=== PATIENT | female | born 1935 | race Caucasian/White ===

== ENCOUNTER 2020-05-09 14:14 | Inpatient (IN) ==
[2020-05-14] MEDS ORDERED: Artificial Tears SOLN 15 ML BOTTLE BOTH EYES PRN (18:11)
[2020-05-14] MEDS ORDERED: Apixaban 5 MG TABLET PO SCH (21:00)
[2020-05-14] MEDS: Metoprolol XL (24 HR) Succ 50 MG TAB.ER.24H PO SCH (23:22)
[2020-05-14] MEDS: Famotidine 20 MG TABLET PO SCH (23:23)
[2020-05-14] MEDS: ALPRAZolam 1 MG TABLET PO PRN (23:23)
[2020-05-14] MEDS: Apixaban 5 MG TABLET PO SCH ×2 (23:23→23:28)
[2020-05-15 06:36] LABS: Basophils % 0.6 %; Eosinophils # 0.2 K/mcL (0.0-0.6); Eosinophils % 2.8 %; Hematocrit 29.7 % (35.3-44.9); Hemoglobin 9.3 g/dL (11.5-15.4); Immature Granulocytes % 0.6 % (0-4); Lymphocytes # 1.4 K/mcL (0.6-4.6); Lymphocytes % 21.7 %; Mean Corpuscular HGB Conc 31.3 g/dL (31.6-35.5); Mean Corpuscular Hemoglobin 30.3 pg (28.0-33.3); Mean Corpuscular Volume 96.7 fL (83.0-100.0); Mean Platelet Volume 10.5 fL (9.4-12.4); Monocytes # 0.5 K/mcL (0.0-1.3); Monocytes % 7.3 %; Neutrophils # 4.2 K/mcL (1.6-8.9); Platelet Count 262 K/mcL (140-400); Red Blood Count 3.07 M/mcL (3.82-4.97); Red Cell Distribution Width 18.1 % (11.5-14.5); White Blood Count 6.3 K/mcL (4.3-11.1)
[2020-05-15 06:52] LABS: BUN/Creatinine Ratio 19 (6-26); Blood Urea Nitrogen 13 mg/dL (8-23); Calcium 8.2 mg/dL (8.6-10.3); Carbon Dioxide 28 mEq/L (23-29); Chloride 106 mEq/L (98-107); Glucose 108 mg/dL (70-105); Osmolality,Calculated 291 (280-300); Potassium 3.5 mEq/L (3.5-5.1); Sodium 140 mEq/L (136-145); eGFR For African Americans > 60 (> 60); eGFR For Non-African Americans > 60 (> 60)
[2020-05-15] MEDS: amLODIPine 5 MG TABLET PO SCH (08:40)
[2020-05-15] MEDS: Furosemide 20 MG TABLET PO SCH (08:40)
[2020-05-15] MEDS: Famotidine 20 MG TABLET PO SCH ×2 (08:40→22:29)
[2020-05-15] MEDS: *HR* Digoxin 0.125 MG TABLET PO SCH (08:40)
[2020-05-15] MEDS: Aspirin Enteric Coated 81 MG Tablet PO SCH (08:40)
[2020-05-15] MEDS: Metoprolol XL (24 HR) Succ 50 MG TAB.ER.24H PO SCH ×2 (08:40→22:29)
[2020-05-15] MEDS: Apixaban 5 MG TABLET PO SCH ×2 (08:40→22:30)
[2020-05-15] MEDS: *HR* OxyCODONE/APAP 5/325 TABLET PO PRN (15:19)
[2020-05-15] MEDS: ALPRAZolam 1 MG TABLET PO PRN (22:30)
[2020-05-16] MEDS: *HR* Digoxin 0.125 MG TABLET PO SCH (10:00)
[2020-05-16] MEDS: Apixaban 5 MG TABLET PO SCH ×2 (10:00→21:14)
[2020-05-16] MEDS: Metoprolol XL (24 HR) Succ 50 MG TAB.ER.24H PO SCH ×2 (10:01→21:15)
[2020-05-16] MEDS: Aspirin Enteric Coated 81 MG Tablet PO SCH (10:01)
[2020-05-16] MEDS: Famotidine 20 MG TABLET PO SCH ×2 (10:01→21:26)
[2020-05-16] MEDS: Furosemide 20 MG TABLET PO SCH (10:01)
[2020-05-16] MEDS: amLODIPine 5 MG TABLET PO SCH (10:01)
[2020-05-16] MEDS: *HR* OxyCODONE/APAP 5/325 TABLET PO PRN (12:08)
[2020-05-16] MEDS: ALPRAZolam 1 MG TABLET PO PRN (21:26)
[2020-05-17] MEDS: amLODIPine 5 MG TABLET PO SCH (09:21)
[2020-05-17] MEDS: Apixaban 5 MG TABLET PO SCH ×2 (09:21→21:21)
[2020-05-17] MEDS: Furosemide 20 MG TABLET PO SCH (09:21)
[2020-05-17] MEDS: Metoprolol XL (24 HR) Succ 50 MG TAB.ER.24H PO SCH ×2 (09:22→21:22)
[2020-05-17] MEDS: *HR* Digoxin 0.125 MG TABLET PO SCH (09:22)
[2020-05-17] MEDS: Famotidine 20 MG TABLET PO SCH ×2 (09:22→21:20)
[2020-05-17] MEDS: Aspirin Enteric Coated 81 MG Tablet PO SCH (09:22)
[2020-05-17] MEDS: ALPRAZolam 1 MG TABLET PO PRN (21:20)
[2020-05-18] MEDS: Apixaban 5 MG TABLET PO SCH ×2 (08:12→22:09)
[2020-05-18] MEDS: Famotidine 20 MG TABLET PO SCH ×2 (08:12→22:09)
[2020-05-18] MEDS: Furosemide 20 MG TABLET PO SCH (08:13)
[2020-05-18] MEDS: *HR* Digoxin 0.125 MG TABLET PO SCH (08:13)
[2020-05-18] MEDS: Aspirin Enteric Coated 81 MG Tablet PO SCH (08:13)
[2020-05-18] MEDS: Metoprolol XL (24 HR) Succ 50 MG TAB.ER.24H PO SCH ×2 (08:13→22:10)
[2020-05-18] MEDS: amLODIPine 5 MG TABLET PO SCH (08:13)
[2020-05-18] MEDS: *HR* OxyCODONE/APAP 5/325 TABLET PO PRN (16:16)
[2020-05-18] MEDS: ALPRAZolam 1 MG TABLET PO PRN (22:10)
[2020-05-19 07:55] LABS: Basophils % 0.4 %; Eosinophils # 0.1 K/mcL (0.0-0.6); Eosinophils % 1.5 %; Hemoglobin 9.3 g/dL (11.5-15.4); Immature Granulocytes % 0.6 % (0-4); Lymphocytes # 1.3 K/mcL (0.6-4.6); Lymphocytes % 19.3 %; Mean Corpuscular Hemoglobin 28.5 pg (28.0-33.3); Mean Platelet Volume 9.8 fL (9.4-12.4); Monocytes # 0.4 K/mcL (0.0-1.3); Monocytes % 6.2 %; Neutrophils # 4.8 K/mcL (1.6-8.9); Platelet Count 255 K/mcL (140-400); Red Blood Count 3.26 M/mcL (3.82-4.97); Red Cell Distribution Width 16.8 % (11.5-14.5); White Blood Count 6.7 K/mcL (4.3-11.1)
[2020-05-19] MEDS: Aspirin Enteric Coated 81 MG Tablet PO SCH (08:57)
[2020-05-19] MEDS: Metoprolol XL (24 HR) Succ 50 MG TAB.ER.24H PO SCH ×2 (08:58→20:09)
[2020-05-19] MEDS: *HR* Digoxin 0.125 MG TABLET PO SCH (08:58)
[2020-05-19] MEDS: amLODIPine 5 MG TABLET PO SCH (08:58)
[2020-05-19] MEDS: Furosemide 20 MG TABLET PO SCH (08:58)
[2020-05-19] MEDS: Famotidine 20 MG TABLET PO SCH ×2 (08:58→20:10)
[2020-05-19] MEDS: *HR* OxyCODONE/APAP 5/325 TABLET PO PRN (10:31)
[2020-05-19] MEDS: Apixaban 5 MG TABLET PO SCH ×2 (17:12→20:13)
[2020-05-19] MEDS: ALPRAZolam 1 MG TABLET PO PRN (20:10)
[2020-05-20] MEDS: *HR* OxyCODONE/APAP 5/325 TABLET PO PRN (01:42)
[2020-05-20] MEDS: Famotidine 20 MG TABLET PO SCH ×2 (09:37→20:52)
[2020-05-20] MEDS: Metoprolol XL (24 HR) Succ 50 MG TAB.ER.24H PO SCH ×2 (09:37→20:54)
[2020-05-20] MEDS: Aspirin Enteric Coated 81 MG Tablet PO SCH (09:37)
[2020-05-20] MEDS: *HR* Digoxin 0.125 MG TABLET PO SCH (09:37)
[2020-05-20] MEDS: Furosemide 20 MG TABLET PO SCH (09:37)
[2020-05-20] MEDS: Apixaban 5 MG TABLET PO SCH ×2 (09:37→20:52)
[2020-05-20] MEDS: amLODIPine 5 MG TABLET PO SCH (09:41)
[2020-05-20] MEDS: ALPRAZolam 1 MG TABLET PO PRN (21:00)
[2020-05-21 07:24] LABS: Basophils % 0.4 %; Eosinophils # 0.1 K/mcL (0.0-0.6); Hematocrit 31.3 % (35.3-44.9); Immature Granulocytes % 0.7 % (0-4); Lymphocytes # 1.9 K/mcL (0.6-4.6); Lymphocytes % 24.5 %; Mean Corpuscular HGB Conc 31.9 g/dL (31.6-35.5); Mean Corpuscular Hemoglobin 29.4 pg (28.0-33.3); Mean Corpuscular Volume 92.1 fL (83.0-100.0); Mean Platelet Volume 9.9 fL (9.4-12.4); Monocytes # 0.6 K/mcL (0.0-1.3); Monocytes % 7.2 %; Neutrophils # 5.1 K/mcL (1.6-8.9); Platelet Count 250 K/mcL (140-400); Red Cell Distribution Width 16.6 % (11.5-14.5); Segmented Neutrophils % 66.2 %; White Blood Count 7.6 K/mcL (4.3-11.1)
[2020-05-21 07:44] LABS: BUN/Creatinine Ratio 21 (6-26); Blood Urea Nitrogen 12 mg/dL (8-23); Calcium 7.8 mg/dL (8.6-10.3); Carbon Dioxide 26 mEq/L (23-29); Chloride 103 mEq/L (98-107); Glucose 123 mg/dL (70-105); Osmolality,Calculated 285 (280-300); Sodium 137 mEq/L (136-145); eGFR For African Americans > 60 (> 60); eGFR For Non-African Americans > 60 (> 60)
[2020-05-21] MEDS: Ondansetron ODT 4 MG TAB.RAPDIS SL PRN (08:51)
[2020-05-21] MEDS: Furosemide 20 MG TABLET PO SCH (09:10)
[2020-05-21] MEDS: Famotidine 20 MG TABLET PO SCH ×2 (09:10→20:33)
[2020-05-21] MEDS: *HR* Digoxin 0.125 MG TABLET PO SCH (09:10)
[2020-05-21] MEDS: Apixaban 5 MG TABLET PO SCH ×2 (09:10→20:34)
[2020-05-21] MEDS: Aspirin Enteric Coated 81 MG Tablet PO SCH (09:11)
[2020-05-21] MEDS: amLODIPine 5 MG TABLET PO SCH (09:22)
[2020-05-21] MEDS: Metoprolol XL (24 HR) Succ 50 MG TAB.ER.24H PO SCH ×2 (09:22→20:33)
[2020-05-21] MEDS: *HR* OxyCODONE/APAP 5/325 TABLET PO PRN (13:49)
[2020-05-22] MEDS: Metoprolol XL (24 HR) Succ 50 MG TAB.ER.24H PO SCH ×2 (10:09→21:38)
[2020-05-22] MEDS: amLODIPine 5 MG TABLET PO SCH (10:09)
[2020-05-22] MEDS: Aspirin Enteric Coated 81 MG Tablet PO SCH (10:09)
[2020-05-22] MEDS: Famotidine 20 MG TABLET PO SCH ×2 (10:09→21:37)
[2020-05-22] MEDS: Furosemide 20 MG TABLET PO SCH (10:09)
[2020-05-22] MEDS: Potassium Chloride Elixir 20 MEQ/15 ML UDC PO SCH ×2 (10:09→21:39)
[2020-05-22] MEDS: *HR* Digoxin 0.125 MG TABLET PO SCH (10:09)
[2020-05-22] MEDS: Apixaban 5 MG TABLET PO SCH ×2 (10:16→21:38)
[2020-05-22] MEDS: ALPRAZolam 1 MG TABLET PO PRN (21:37)
[2020-05-23] MEDS: Famotidine 20 MG TABLET PO SCH ×2 (09:03→20:47)
[2020-05-23] MEDS: *HR* OxyCODONE/APAP 5/325 TABLET PO PRN (09:03)
[2020-05-23] MEDS: Apixaban 5 MG TABLET PO SCH ×2 (09:04→20:47)
[2020-05-23] MEDS: Potassium Chloride Elixir 20 MEQ/15 ML UDC PO SCH ×2 (09:05→20:44)
[2020-05-23] MEDS: ALPRAZolam 1 MG TABLET PO PRN (09:05)
[2020-05-23] MEDS: *HR* Digoxin 0.125 MG TABLET PO SCH (09:05)
[2020-05-23] MEDS: Furosemide 20 MG TABLET PO SCH (09:05)
[2020-05-23] MEDS: Aspirin Enteric Coated 81 MG Tablet PO SCH (09:05)
[2020-05-23] MEDS: amLODIPine 5 MG TABLET PO SCH (09:05)
[2020-05-23] MEDS: Metoprolol XL (24 HR) Succ 50 MG TAB.ER.24H PO SCH ×2 (09:05→20:46)
[2020-05-23] MEDS: Ondansetron ODT 4 MG TAB.RAPDIS SL PRN (09:11)
[2020-05-24] MEDS: Metoprolol XL (24 HR) Succ 50 MG TAB.ER.24H PO SCH ×2 (08:03→21:02)
[2020-05-24] MEDS: *HR* Digoxin 0.125 MG TABLET PO SCH (08:03)
[2020-05-24] MEDS: Famotidine 20 MG TABLET PO SCH ×2 (08:03→21:02)
[2020-05-24] MEDS: Aspirin Enteric Coated 81 MG Tablet PO SCH (08:03)
[2020-05-24] MEDS: amLODIPine 5 MG TABLET PO SCH (08:03)
[2020-05-24] MEDS: Apixaban 5 MG TABLET PO SCH ×2 (08:03→21:02)
[2020-05-24] MEDS: Furosemide 20 MG TABLET PO SCH (08:04)
[2020-05-24] MEDS: Potassium Chloride Elixir 20 MEQ/15 ML UDC PO SCH ×2 (08:04→21:03)
[2020-05-24] MEDS: ALPRAZolam 1 MG TABLET PO PRN (21:02)
[2020-05-24] MEDS: *HR* OxyCODONE/APAP 5/325 TABLET PO PRN (21:07)
[2020-05-25 07:42] LABS: Hematocrit 33.4 % (35.3-44.9); Hemoglobin 10.4 g/dL (11.5-15.4); Mean Corpuscular HGB Conc 31.1 g/dL (31.6-35.5); Mean Corpuscular Hemoglobin 28.9 pg (28.0-33.3); Mean Corpuscular Volume 92.8 fL (83.0-100.0); Mean Platelet Volume 10.2 fL (9.4-12.4); Platelet Count 258 K/mcL (140-400); Red Cell Distribution Width 16.4 % (11.5-14.5); White Blood Count 10.2 K/mcL (4.3-11.1)
[2020-05-25] MEDS: *HR* Digoxin 0.125 MG TABLET PO SCH (07:45)
[2020-05-25] MEDS: Apixaban 5 MG TABLET PO SCH ×2 (07:45→20:24)
[2020-05-25] MEDS: Metoprolol XL (24 HR) Succ 50 MG TAB.ER.24H PO SCH ×2 (07:45→20:23)
[2020-05-25] MEDS: Aspirin Enteric Coated 81 MG Tablet PO SCH (07:45)
[2020-05-25] MEDS: Famotidine 20 MG TABLET PO SCH ×2 (07:45→20:25)
[2020-05-25] MEDS: amLODIPine 5 MG TABLET PO SCH (07:46)
[2020-05-25] MEDS: Potassium Chloride Elixir 20 MEQ/15 ML UDC PO SCH ×2 (07:47→20:25)
[2020-05-25 08:01] LABS: BUN/Creatinine Ratio 21 (6-26); Blood Urea Nitrogen 17 mg/dL (8-23); Calcium 8.2 mg/dL (8.6-10.3); Carbon Dioxide 29 mEq/L (23-29); Chloride 101 mEq/L (98-107); Glucose 124 mg/dL (70-105); Osmolality,Calculated 285 (280-300); Potassium 3.7 mEq/L (3.5-5.1); Sodium 136 mEq/L (136-145); eGFR For African Americans > 60 (> 60); eGFR For Non-African Americans > 60 (> 60)
[2020-05-25] MEDS: Furosemide 20 MG TABLET PO SCH (08:06)
[2020-05-25 09:29] LABS: Bilirubin,Urine Negative (Negative); Blood,Urine Small (Negative); Clarity,Urine Slightly Cloudy (Clear); Glucose,Urine (UA) Normal (Normal); Ketones,Urine Negative (Negative); Leukocyte Esterase,Urine Moderate (Negative); Nitrite,Urine Positive (Negative); Protein,Urine 30 mg/dL (Neg-Trace); Specific Gravity,Urine 1.025 (1.010-1.025); Urobilinogen,Urine Normal (Normal)
[2020-05-25 09:38] LABS: Color,Urine Dark Yellow (Yellow)
[2020-05-25 09:39] LABS: Bacteria,Urine Moderate per hpf (None-Few); Mucus,Urine Few per lpf (None-Few); Renal Epithelial Cells,Urine Few per hpf (None-Few); Squamous Epithelial Cell,Urine Few per hpf (None-Few); WBC,Urine 30-50 per hpf (0-3)
[2020-05-25] MEDS: Sennosides/Docusate Sodium TABLET PO SCH ×2 (12:47→20:23)
[2020-05-25] MEDS: *HR* OxyCODONE/APAP 5/325 TABLET PO PRN ×2 (12:47→20:24)
[2020-05-25] MEDS: ALPRAZolam 1 MG TABLET PO PRN (20:23)
[2020-05-26] MEDS: amLODIPine 5 MG TABLET PO SCH (08:55)
[2020-05-26] MEDS: *HR* Digoxin 0.125 MG TABLET PO SCH (08:56)
[2020-05-26] MEDS: Apixaban 5 MG TABLET PO SCH ×2 (08:56→20:43)
[2020-05-26] MEDS: Furosemide 20 MG TABLET PO SCH (08:56)
[2020-05-26] MEDS: Metoprolol XL (24 HR) Succ 50 MG TAB.ER.24H PO SCH ×2 (08:56→20:41)
[2020-05-26] MEDS: Sennosides/Docusate Sodium TABLET PO SCH ×2 (08:57→20:42)
[2020-05-26] MEDS: Aspirin Enteric Coated 81 MG Tablet PO SCH (08:57)
[2020-05-26] MEDS: Famotidine 20 MG TABLET PO SCH ×2 (08:57→20:42)
[2020-05-26] MEDS: Potassium Chloride Elixir 20 MEQ/15 ML UDC PO SCH ×2 (09:01→20:45)
[2020-05-26] MEDS: ALPRAZolam 1 MG TABLET PO PRN (20:44)
[2020-05-27] MEDS: Apixaban 5 MG TABLET PO SCH ×2 (08:21→21:38)
[2020-05-27] MEDS: *HR* Digoxin 0.125 MG TABLET PO SCH (08:21)
[2020-05-27] MEDS: amLODIPine 5 MG TABLET PO SCH (08:22)
[2020-05-27] MEDS: Sennosides/Docusate Sodium TABLET PO SCH ×2 (08:22→21:38)
[2020-05-27] MEDS: Famotidine 20 MG TABLET PO SCH ×2 (08:22→21:38)
[2020-05-27] MEDS: Aspirin Enteric Coated 81 MG Tablet PO SCH (08:22)
[2020-05-27] MEDS: Metoprolol XL (24 HR) Succ 50 MG TAB.ER.24H PO SCH ×2 (08:22→21:37)
[2020-05-27] MEDS: Furosemide 20 MG TABLET PO SCH (08:22)
[2020-05-27] MEDS: Potassium Chloride Elixir 20 MEQ/15 ML UDC PO SCH ×2 (08:23→21:48)
[2020-05-27] MEDS: *HR* OxyCODONE/APAP 5/325 TABLET PO PRN (14:25)
[2020-05-27] MEDS: ALPRAZolam 1 MG TABLET PO PRN (21:36)
[2020-05-28] MEDS: Famotidine 20 MG TABLET PO SCH ×2 (08:10→19:48)
[2020-05-28] MEDS: Metoprolol XL (24 HR) Succ 50 MG TAB.ER.24H PO SCH ×2 (08:11→19:49)
[2020-05-28] MEDS: Apixaban 5 MG TABLET PO SCH ×2 (08:12→19:47)
[2020-05-28] MEDS: Sennosides/Docusate Sodium TABLET PO SCH ×2 (08:12→19:48)
[2020-05-28] MEDS: Furosemide 20 MG TABLET PO SCH (08:12)
[2020-05-28] MEDS: *HR* Digoxin 0.125 MG TABLET PO SCH (08:12)
[2020-05-28] MEDS: Aspirin Enteric Coated 81 MG Tablet PO SCH (08:12)
[2020-05-28] MEDS: amLODIPine 5 MG TABLET PO SCH (08:12)
[2020-05-28] MEDS: Potassium Chloride Elixir 20 MEQ/15 ML UDC PO SCH ×2 (08:13→19:49)
[2020-05-29] MEDS: *HR* OxyCODONE/APAP 5/325 TABLET PO PRN (01:00)
[2020-05-29 07:23] LABS: Hematocrit 32.4 % (35.3-44.9); Hemoglobin 10.2 g/dL (11.5-15.4); Mean Corpuscular HGB Conc 31.5 g/dL (31.6-35.5); Mean Corpuscular Hemoglobin 28.9 pg (28.0-33.3); Mean Corpuscular Volume 91.8 fL (83.0-100.0); Mean Platelet Volume 9.9 fL (9.4-12.4); Platelet Count 264 K/mcL (140-400); Red Blood Count 3.53 M/mcL (3.82-4.97); White Blood Count 7.5 K/mcL (4.3-11.1)
[2020-05-29 07:44] LABS: BUN/Creatinine Ratio 21 (6-26); Blood Urea Nitrogen 18 mg/dL (8-23); Carbon Dioxide 29 mEq/L (23-29); Chloride 104 mEq/L (98-107); Glucose 117 mg/dL (70-105); Magnesium 1.6 mg/dL (1.6-2.6); Osmolality,Calculated 291 (280-300); Potassium 3.6 mEq/L (3.5-5.1); Sodium 139 mEq/L (136-145); eGFR For African Americans > 60 (> 60); eGFR For Non-African Americans > 60 (> 60)
[2020-05-29] MEDS: Famotidine 20 MG TABLET PO SCH ×2 (07:51→20:11)
[2020-05-29] MEDS: Sennosides/Docusate Sodium TABLET PO SCH ×2 (07:51→20:11)
[2020-05-29] MEDS: amLODIPine 5 MG TABLET PO SCH (07:51)
[2020-05-29] MEDS: Metoprolol XL (24 HR) Succ 50 MG TAB.ER.24H PO SCH ×2 (07:51→20:11)
[2020-05-29] MEDS: Aspirin Enteric Coated 81 MG Tablet PO SCH (07:51)
[2020-05-29] MEDS: Potassium Chloride Elixir 20 MEQ/15 ML UDC PO SCH ×2 (07:52→20:12)
[2020-05-29] MEDS: *HR* Digoxin 0.125 MG TABLET PO SCH (07:52)
[2020-05-29] MEDS: Apixaban 5 MG TABLET PO SCH ×2 (07:52→20:11)
[2020-05-29] MEDS: Furosemide 20 MG TABLET PO SCH (07:52)
[2020-05-30] MEDS: Potassium Chloride Elixir 20 MEQ/15 ML UDC PO SCH ×3 (08:12→20:16)
[2020-05-30] MEDS: Famotidine 20 MG TABLET PO SCH ×2 (08:13→20:16)
[2020-05-30] MEDS: amLODIPine 5 MG TABLET PO SCH (08:13)
[2020-05-30] MEDS: Sennosides/Docusate Sodium TABLET PO SCH ×2 (08:13→20:16)
[2020-05-30] MEDS: *HR* Digoxin 0.125 MG TABLET PO SCH (08:13)
[2020-05-30] MEDS: Metoprolol XL (24 HR) Succ 50 MG TAB.ER.24H PO SCH ×2 (08:13→20:15)
[2020-05-30] MEDS: Apixaban 5 MG TABLET PO SCH ×2 (08:13→20:15)
[2020-05-30] MEDS: Furosemide 20 MG TABLET PO SCH (08:14)
[2020-05-30] MEDS: Aspirin Enteric Coated 81 MG Tablet PO SCH (08:14)
[2020-05-30] MEDS ORDERED: ALPRAZolam 0.5 MG TABLET PO ONE (08:47)
[2020-05-30] MEDS: ALPRAZolam 0.5 MG TABLET PO PRN (21:33)
[2020-05-31] MEDS: Famotidine 20 MG TABLET PO SCH ×2 (08:11→21:20)
[2020-05-31] MEDS: *HR* Digoxin 0.125 MG TABLET PO SCH (08:12)
[2020-05-31] MEDS: Sennosides/Docusate Sodium TABLET PO SCH ×2 (08:12→21:20)
[2020-05-31] MEDS: Aspirin Enteric Coated 81 MG Tablet PO SCH (08:12)
[2020-05-31] MEDS: Metoprolol XL (24 HR) Succ 50 MG TAB.ER.24H PO SCH ×2 (08:13→21:20)
[2020-05-31] MEDS: Furosemide 20 MG TABLET PO SCH (08:13)
[2020-05-31] MEDS: Apixaban 5 MG TABLET PO SCH ×2 (08:13→21:20)
[2020-05-31] MEDS: amLODIPine 5 MG TABLET PO SCH (08:13)
[2020-05-31] MEDS: Potassium Chloride Elixir 20 MEQ/15 ML UDC PO SCH ×2 (08:14→21:21)
[2020-05-31] MEDS: ALPRAZolam 0.5 MG TABLET PO PRN (21:21)
[2020-06-01 07:06] LABS: Basophils # 0.1 K/mcL (0.0-0.2); Basophils % 0.6 %; Eosinophils # 0.1 K/mcL (0.0-0.6); Eosinophils % 1.4 %; Hematocrit 32.8 % (35.3-44.9); Hemoglobin 10.4 g/dL (11.5-15.4); Immature Granulocytes % 1.8 % (0-4); Lymphocytes # 4.3 K/mcL (0.6-4.6); Lymphocytes % 44.9 %; Mean Corpuscular HGB Conc 31.7 g/dL (31.6-35.5); Mean Corpuscular Hemoglobin 28.7 pg (28.0-33.3); Mean Corpuscular Volume 90.6 fL (83.0-100.0); Monocytes # 0.6 K/mcL (0.0-1.3); Monocytes % 6.1 %; Neutrophils # 4.3 K/mcL (1.6-8.9); Platelet Count 273 K/mcL (140-400); Red Blood Count 3.62 M/mcL (3.82-4.97); Red Cell Distribution Width 16.2 % (11.5-14.5); Segmented Neutrophils % 45.2 %; White Blood Count 9.5 K/mcL (4.3-11.1)
[2020-06-01 07:32] LABS: BUN/Creatinine Ratio 19 (6-26); Blood Urea Nitrogen 16 mg/dL (8-23); Calcium 7.9 mg/dL (8.6-10.3); Carbon Dioxide 26 mEq/L (23-29); Chloride 105 mEq/L (98-107); Glucose 114 mg/dL (70-105); Osmolality,Calculated 292 (280-300); Potassium 2.9 mEq/L (3.5-5.1); Sodium 140 mEq/L (136-145); eGFR For African Americans > 60 (> 60); eGFR For Non-African Americans > 60 (> 60)
[2020-06-01] MEDS ORDERED: Ondansetron ODT 4 MG TAB.RAPDIS SL ONE (08:41)
[2020-06-01 09:06] LABS: Anisocytosis 1+ (Not Present); Polychromasia 1+ (Not Present); Reactive Lymphocytes Present (Not Present)
[2020-06-01 09:07] LABS: Platelet Estimate Normal (Normal); Toxic Granulation Present (Not Present)
[2020-06-01] MEDS: Metoprolol XL (24 HR) Succ 50 MG TAB.ER.24H PO SCH ×2 (09:31→21:49)
[2020-06-01] MEDS: Apixaban 5 MG TABLET PO SCH ×2 (09:31→21:46)
[2020-06-01] MEDS: Famotidine 20 MG TABLET PO SCH ×2 (09:31→21:47)
[2020-06-01] MEDS: Furosemide 20 MG TABLET PO SCH (09:31)
[2020-06-01] MEDS: Sennosides/Docusate Sodium TABLET PO SCH ×2 (09:31→21:46)
[2020-06-01] MEDS: *HR* Digoxin 0.125 MG TABLET PO SCH (09:31)
[2020-06-01] MEDS: Aspirin Enteric Coated 81 MG Tablet PO SCH (09:32)
[2020-06-01] MEDS: amLODIPine 5 MG TABLET PO SCH (09:32)
[2020-06-01] MEDS: Ondansetron ODT 4 MG TAB.RAPDIS SL PRN (17:58)
[2020-06-01] MEDS: ALPRAZolam 0.5 MG TABLET PO PRN (21:46)
[2020-06-02] MEDS: Ondansetron ODT 4 MG TAB.RAPDIS SL PRN ×3 (01:52→21:57)
[2020-06-02 09:24] LABS: Calcium 8.6 mg/dL (8.6-10.3); Potassium 4.3 mEq/L (3.5-5.1)
[2020-06-02] MEDS: Apixaban 5 MG TABLET PO SCH ×2 (10:51→21:58)
[2020-06-02] MEDS: Famotidine 20 MG TABLET PO SCH ×2 (10:51→21:57)
[2020-06-02] MEDS: Aspirin Enteric Coated 81 MG Tablet PO SCH (10:51)
[2020-06-02] MEDS: Metoprolol XL (24 HR) Succ 50 MG TAB.ER.24H PO SCH ×2 (10:51→21:58)
[2020-06-02] MEDS: Sennosides/Docusate Sodium TABLET PO SCH ×2 (10:51→21:58)
[2020-06-02] MEDS: amLODIPine 5 MG TABLET PO SCH (10:52)
[2020-06-02] MEDS: Furosemide 20 MG TABLET PO SCH (10:52)
[2020-06-02] MEDS: *HR* Digoxin 0.125 MG TABLET PO SCH (10:52)
[2020-06-02] MEDS: ALPRAZolam 0.5 MG TABLET PO PRN (21:57)
[2020-06-03] MEDS: Magnesium Oxide 400 MG TABLET PO SCH ×2 (00:16→11:17)
[2020-06-03 07:40] LABS: BUN/Creatinine Ratio 16 (6-26); Blood Urea Nitrogen 16 mg/dL (8-23); Calcium 8.3 mg/dL (8.6-10.3); Carbon Dioxide 29 mEq/L (23-29); Chloride 104 mEq/L (98-107); Glucose 104 mg/dL (70-105); Osmolality,Calculated 289 (280-300); Potassium 3.7 mEq/L (3.5-5.1); Sodium 139 mEq/L (136-145); eGFR For African Americans > 60 (> 60); eGFR For Non-African Americans 52 (> 60)
[2020-06-03] MEDS: Famotidine 20 MG TABLET PO SCH ×2 (11:16→20:59)
[2020-06-03] MEDS: Furosemide 20 MG TABLET PO SCH (11:16)
[2020-06-03] MEDS: amLODIPine 5 MG TABLET PO SCH (11:16)
[2020-06-03] MEDS: Metoprolol XL (24 HR) Succ 50 MG TAB.ER.24H PO SCH ×2 (11:17→20:15)
[2020-06-03] MEDS: *HR* Digoxin 0.125 MG TABLET PO SCH (11:17)
[2020-06-03] MEDS: Aspirin Enteric Coated 81 MG Tablet PO SCH (11:17)
[2020-06-03] MEDS: Apixaban 5 MG TABLET PO SCH ×2 (11:18→20:15)
[2020-06-03] MEDS: Sennosides/Docusate Sodium TABLET PO SCH ×2 (11:18→20:15)
[2020-06-03] MEDS: ALPRAZolam 0.5 MG TABLET PO PRN (20:32)
[2020-06-04] MEDS: Aspirin Enteric Coated 81 MG Tablet PO SCH (08:44)
[2020-06-04] MEDS: Metoprolol XL (24 HR) Succ 50 MG TAB.ER.24H PO SCH ×2 (08:44→19:55)
[2020-06-04] MEDS: Furosemide 20 MG TABLET PO SCH (08:45)
[2020-06-04] MEDS: *HR* Digoxin 0.125 MG TABLET PO SCH (08:45)
[2020-06-04] MEDS: Magnesium Oxide 400 MG TABLET PO SCH (08:45)
[2020-06-04] MEDS: Famotidine 20 MG TABLET PO SCH ×2 (08:45→19:54)
[2020-06-04] MEDS: Sennosides/Docusate Sodium TABLET PO SCH ×2 (08:45→19:55)
[2020-06-04] MEDS: Apixaban 5 MG TABLET PO SCH ×2 (08:45→19:55)
[2020-06-04] MEDS: amLODIPine 5 MG TABLET PO SCH (08:50)
[2020-06-04] MEDS: ALPRAZolam 0.5 MG TABLET PO PRN (20:06)
[2020-06-05] MEDS: *HR* Digoxin 0.125 MG TABLET PO SCH (08:38)
[2020-06-05] MEDS: Magnesium Oxide 400 MG TABLET PO SCH (08:38)
[2020-06-05] MEDS: Sennosides/Docusate Sodium TABLET PO SCH ×2 (08:38→20:16)
[2020-06-05] MEDS: Aspirin Enteric Coated 81 MG Tablet PO SCH (08:39)
[2020-06-05] MEDS: Famotidine 20 MG TABLET PO SCH ×2 (08:39→20:16)
[2020-06-05] MEDS: Metoprolol XL (24 HR) Succ 50 MG TAB.ER.24H PO SCH ×2 (08:39→20:16)
[2020-06-05] MEDS: Furosemide 20 MG TABLET PO SCH (08:39)
[2020-06-05] MEDS: Apixaban 5 MG TABLET PO SCH ×2 (08:39→20:17)
[2020-06-05] MEDS: amLODIPine 5 MG TABLET PO SCH (08:39)
[2020-06-05] MEDS: ALPRAZolam 0.5 MG TABLET PO PRN (20:20)
[2020-06-06 07:50] VITALS: BP 115/50
[2020-06-06] MEDS: Metoprolol XL (24 HR) Succ 50 MG TAB.ER.24H PO SCH (08:17)
[2020-06-06] MEDS: Apixaban 5 MG TABLET PO SCH (08:17)
[2020-06-06] MEDS: Furosemide 20 MG TABLET PO SCH (08:17)
[2020-06-06] MEDS: Magnesium Oxide 400 MG TABLET PO SCH (08:17)
[2020-06-06] MEDS: *HR* Digoxin 0.125 MG TABLET PO SCH (08:18)
[2020-06-06] MEDS: Sennosides/Docusate Sodium TABLET PO SCH (08:18)
[2020-06-06] MEDS: Famotidine 20 MG TABLET PO SCH (08:18)
[2020-06-06] MEDS: Aspirin Enteric Coated 81 MG Tablet PO SCH (08:18)
[2020-06-06] MEDS: amLODIPine 5 MG TABLET PO SCH (08:18)
[2020-06-06] MEDS: *HR* OxyCODONE/APAP 5/325 TABLET PO PRN (12:04)
== END 2020-06-06 12:35 | disposition home health service (06) | DRG 602 ==
LOC: INPPIK 05-14 20:26
PROVIDERS: ADMIT Family Medicine; ATTEND Family Medicine